=== PATIENT | female | born 1965 | race American Indian/Alaskan Native ===

== ENCOUNTER 2017-09-07 06:15 | Day surgery (SDC) | payer BC ==
[2017-09-07] MEDS ORDERED: WATER FOR IRRIG STERILE IR ONE (07:25)
--- NOTE | 2017-09-07 07:39 | Anesthesia Consultation ---
Anesthesia Consult and Med Hx Date of service: 09/07/17 - Airway Anesthetic Teeth Evaluation: Partials ROM Head & Neck: Adequate Mental/Hyoid Distance: Adequate Mallampati Class: Class II Intubation Access Assessment: Probably Good - Pulmonary Exam CTA: Yes - Cardiac Exam Cardiac Exam: RRR - Pre-Operative Health Status ASA Pre-Surgery Classification: ASA3 Proposed Anesthetic Plan: MAC - Pre-Anesthesia Comment Pre-Anesthesia Comments: Hx Wegeners Disease. - Gastrointestinal Hx Gastroesophageal Reflux Disease: Yes - Endocrine Hx Renal Disease: Yes (Renal Insuff r/t Wegeners Disease ) - Other Systems Hx Obesity: Yes
--- NOTE | 2017-09-07 07:40 | Anesthesia Day of Surgery ---
Anesthesia Day of Surgery - Day of Surgery Patient Examined: Yes Patient H&P Reviewed: Yes Patient is NPO: Yes
[2017-09-07] MEDS ORDERED: DIPRIVAN 10 MG/ML IV ONE ×2 (07:49)
[2017-09-07] MEDS ORDERED: NACL 0.9% 1000 ML 1,000 ML IV SCH (08:00)
[2017-09-07] MEDS ORDERED: XYLOCAINE MPF 2% ONE (08:00)
--- NOTE | 2017-09-07 08:32 | Discharge Summary ---
Providers - Providers Attending physician: ANGELA MENDIOLA Primary care physician: NOLA PARKINSON Hospitalization Procedures: EGD with biopsy Hospital course: 51 y.o. F with hx of gastric bypass in 2001 presented for EGD. She tolerated the procedure well. She was discharged home the same day. Disposition: TO HOME OR SELFCARE Core Measure Documentation - Palliative Care Palliative Care/ Comfort Measures: Not Applicable - Core Measures Any of the following diagnoses?: none Exam - Physical Exam Narrative exam: no change from previous - Constitutional Vitals: Temp Pulse Resp BP Pulse Ox 98.2 F 81 16 122/78 98 09/07/17 08:24 09/07/17 08:24 09/07/17 08:24 09/07/17 08:24 09/07/17 08:24 Plan Activity: no restrictions Additional Instructions: follow up in Dr. Mendiola's office Follow up with: NOLA PARKINSON MD [Primary Care Provider] - 7 Days
--- NOTE | 2017-09-07 08:44 | Operative Report ---
Operative Report Operative Report: EGD Post bypass DATE: 09/07/17 OPERATIVE REPORT - EGD PREOP DIAGNOSIS: gastric dyspepsia POSTOP DIAGNOSIS: 1. Gastric dyspepsia 2. suture granuloma 3. marginal ulcer 4. 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 SURGEON: Dr. Maury Haines EVENT SALES ASSISTANT: Dania Galicia DO TYPE OF ANESTHESIA: MAC. ESTIMATED BLOOD LOSS: None. COMPLICATIONS: None. SPECIMENS REMOVED: polyp biopsy at GJ. FINDINGS: 1. normal esophagus 2. gastric pouch - 30-40ml 3. gastrojejunal anastomosis is 20mm 4. Marginal ulcer 5. suture granuloma 6. polyp at GJ 7. fistula at GJ INDICATIONS:INDICATION FOR PROCEDURE: Patient is a 51-year-old F s/p gastric [place] [address] Mendiola. The patient is here today for evaluation for revision surgery. The patient is here for a planned EGD for gastric dyspepsia. PROCEDURE DETAILS: After consent was reviewed, patient was taken back to the operating room where patient was placed in the left lateral decubitus position and a bite block was placed in the mouth. After a time-out was called, MAC anesthesia was initiated. I then passed the endoscope into the patients oropharynx, into the esophagus, visualized the entire esophagus, which was all within normal limits. I then visualized the gastric pouch which was normal and about 30-40ml in size. The gastrojejunal anastomosis was noted to have a marginal ulcer that had a clean white base, no active bleeding. Just medial to the ulcer was a piece of suture sticking out of the mucosa with surrounding erythema (suture granuloma). The piece of suture was green and very short. The GJ anastomosis was noted to be about 20mm. Just proximal to the GJ was what appeared to be a fistula. The space could not be entered with the scope. Just proximal to the fistula was a polyp (non ulcerated, clean base). This polyp was at the GJ and was biopsied. The proximal portion of the iliana limb was normal. I then desufflated the gastric pouch and removed the endoscope. Patient tolerated procedure well and was transferred to recovery room in good and stable condition
[2017-09-07 08:55] VITALS: BP 157/77
== END 2017-09-07 06:16 | disposition home or self-care (01) ==
LOC: GIO 06:15
PROVIDERS: ATTEND Specialist
DX: K28.9 Gastrojejunal ulcer, unspecified as acute or chronic, without hemorrhage or perforation (principal); K31.6 Fistula of stomach and duodenum; K31.7 Polyp of stomach and duodenum; M60.28 Foreign body granuloma of soft tissue, not elsewhere classified, other site; K21.9 Gastro-esophageal reflux disease without esophagitis; M31.31 Wegener's granulomatosis with renal involvement; E66.9 Obesity, unspecified; Z68.43 Body mass index [BMI] 50.0-59.9, adult; Z88.1 Allergy status to other antibiotic agents; Z88.2 Allergy status to sulfonamides; Z88.8 Allergy status to other drugs, medicaments and biological substances; Z98.84 Bariatric surgery status
CPT/HCPCS: 43239; 88305; 88342; J2704; J7030

== ENCOUNTER → 2018-01-19 | Outpatient (CLI) | payer BC | LOC: SLR 11:00 | PROVIDERS: ATTEND Otolaryngology | DX: G47.30 Sleep apnea, unspecified (principal); K21.9 Gastro-esophageal reflux disease without esophagitis; Z90.49 Acquired absence of other specified parts of digestive tract | CPT/HCPCS: G0399 ==